=== PATIENT | female | born 1985 | race Caucasian/White ===

== ENCOUNTER → 2017-02-15 | Outpatient (CLI) | payer OTHER ==
[~2017-02-15] MED LIST: DOCU-30 PO; IBUP-1222 PO; OMNIPAQUE 350 MG/ML, 100ML BOTTLE ONE; OXYC-302 PO
== END | disposition home or self-care (01) ==
LOC: CFH 09:28
PROVIDERS: ATTEND Internal Medicine
DX: D3A.026 Benign carcinoid tumor of the rectum (principal)
CPT/HCPCS: 74177; Q9967

== ENCOUNTER 2017-03-12 10:26 | Day surgery (SDC) | payer OTHER ==
[~2017-03-12] VITALS: Ht 152.4 cm; Wt 57.5 kg
[~2017-03-12 10:26] MED LIST changes: -OMNIPAQUE 350 MG/ML, 100ML BOTTLE ONE
[2017-03-12] MEDS ORDERED: ETON1VAG VG (10:51)
[2017-03-12] MEDS ORDERED: LACTATED RINGERS 1,000 ML IV SCH (10:52)
[2017-03-12] MEDS ORDERED: LIDOCAINE 1%, 2ML ONE (10:59)
[2017-03-12] MEDS ORDERED: LIDOCAINE 1%, 2ML SQ PRN (11:00)
[2017-03-12 11:04] VITALS: BP 128/93
[2017-03-12 11:08] LABS: HCG UR OBC PASS
[2017-03-12] MEDS ORDERED: PROPOFOL 10 MG/ML, 50ML ONE (11:44)
== END 2017-03-12 14:00 | disposition home or self-care (01) ==
LOC: OUT 10:26
PROVIDERS: ATTEND Internal Medicine Geriatric Medicine
DX: Z09 Encounter for follow-up examination after completed treatment for conditions other than malignant neoplasm (principal); Z87.19 Personal history of other diseases of the digestive system
CPT/HCPCS: 45341; 81025; J2704; J3490; J7120